=== PATIENT | male | born 1955 ===

== ENCOUNTER 2020-08-30 16:15 | Inpatient (IN) | payer MEDICARE ==
[~2020-08-30] VITALS: Ht 190.5 cm; Wt 127.0 kg
[2020-08-30] MEDS ORDERED: ACETAMINOPHEN 325 MG TABLET PO PRN (17:00)
[2020-08-30] MEDS ORDERED: MAGNESIUM HYDROXIDE 2,400 MG/30 ML ORAL.SUSP. PO PRN (17:00)
[2020-08-30] MEDS ORDERED: MAG HYDROX/AL HYDROX/SIMETH 30 ML ORAL.SUSP PO PRN (17:00)
[2020-08-30] MEDS ORDERED: METHYL SALICYLATE/MENTHOL TOPICAL OINTMENT 57GM TUBE. TP PRN (17:00)
[2020-08-30] MEDS ORDERED: COLC0.6T34 PO (17:12)
[2020-08-30] MEDS ORDERED: METO-239 PO (17:12)
[2020-08-30] MEDS ORDERED: VITB PO (17:12)
[2020-08-30] MEDS ORDERED: FLEC100T PO (17:12)
[2020-08-30] MEDS ORDERED: QUET50TA5 PO (17:12)
[2020-08-30] MEDS ORDERED: LEVO25TA4 PO (17:12)
[2020-08-30] MEDS ORDERED: CRESTOR10 MG PO (17:12)
[2020-08-30] MEDS ORDERED: VITC PO (17:12)
[2020-08-30] MEDS ORDERED: VENL37.5 PO (17:12)
[2020-08-30] MEDS ORDERED: [UNRECOGNIZED DRUG - OTHER] PO (17:12)
[2020-08-30] MEDS ORDERED: VENL150C PO (17:12)
[2020-08-30] MEDS ORDERED: ALLO300T PO (17:12)
[2020-08-30] MEDS ORDERED: APIX5TAB3 PO (17:12)
[2020-08-30] MEDS ORDERED: LISI40TA6 PO (17:12)
[2020-08-30] MEDS ORDERED: QUET25TA5 PO (17:12)
[2020-08-30 18:23] VITALS: BP 11/75
[2020-08-30 18:56] LABS: BASO # 0.1 x10^3/uL (0.0-0.2); BASO % 1 % (0-3); EOS # 0.4 x10^3/uL (0.0-0.7); EOS % 5 % (0-3); HEMATOCRIT 46.7 % (39.0-53.0); HEMOGLOBIN 15.6 g/dL (13.0-17.5); LYMPH # 2.4 x10^3/uL (1.0-4.8); LYMPH % 28 % (24-48); MEAN CORPUSCULAR HEMOGLOBIN 32 pg (25-35); MEAN CORPUSCULAR HGB CONC 33 g/dL (31-37); MEAN CORPUSCULAR VOLUME 97 fL (79-100); MONO # 0.7 x10^3/uL (0.0-1.1); MONO % 8 % (0-9); NEUT % 59 % (31-73); PLATELET COUNT 236 x10^3/uL (140-400); RED BLOOD COUNT 4.81 x10^6/uL (4.30-5.70); RED CELL DISTRIBUTION WIDTH 17.3 % (11.5-14.5); WHITE BLOOD COUNT 8.6 x10^3/uL (4.0-11.0)
[2020-08-30 19:24] LABS: ALBUMIN 3.9 g/dL (3.4-5.0); ALBUMIN/GLOBULIN RATIO 0.8 (1.0-1.7); CALCIUM 9.5 mg/dL (8.5-10.1); CREATININE 1.5 mg/dL (0.7-1.3); GFR 46.7; MAGNESIUM 2.1 mg/dL (1.8-2.4); POTASSIUM 4.9 mmol/L (3.5-5.1); TOTAL BILIRUBIN 0.7 mg/dL (0.2-1.0); TOTAL PROTEIN 8.6 g/dL (6.4-8.2)
[2020-08-30] MEDS: VENLAFAXINE 75 MG TABLET. PO SCH (21:00)
[2020-08-30] MEDS ORDERED: VENLAFAXINE XR 37.5 MG CAP.ER.24H. PO SCH (21:00)
[2020-08-30] MEDS: FLECAINIDE 50 MG TABLET. PO SCH (21:00)
[2020-08-30] MEDS: QUEtiapine 50 MG TABLET. PO SCH (21:20)
[2020-08-30] MEDS: APIXABAN 5 MG TABLET. PO SCH (21:20)
[2020-08-30] MEDS: METOPROLOL SUCC 24HR ER 25 MG TAB.ER.24H. PO SCH (21:21)
[2020-08-30] MEDS: ATORVASTATIN CALCIUM 20 MG TABLET PO SCH (21:22)
[2020-08-31] MEDS: LEVOTHYROXINE 25 MCG TABLET. PO SCH (05:22)
[2020-08-31 05:45] VITALS: BP 150/90
[2020-08-31] MEDS: APIXABAN 5 MG TABLET. PO SCH ×2 (08:17→20:23)
[2020-08-31] MEDS: COLCHICINE 0.6 MG TABLET. PO SCH (08:17)
[2020-08-31] MEDS: VITAMIN B COMPLEX CAPSULE. PO SCH (08:18)
[2020-08-31] MEDS: ALLOPURINOL 300 MG TABLET. PO SCH (08:18)
[2020-08-31] MEDS: QUEtiapine 25 MG TABLET. PO SCH (08:18)
[2020-08-31] MEDS: LISINOPRIL 20 MG TABLET PO SCH (08:18)
[2020-08-31] MEDS: VENLAFAXINE 75 MG TABLET. PO SCH ×3 (08:19→20:23)
[2020-08-31] MEDS: FLECAINIDE 50 MG TABLET. PO SCH ×2 (09:00→20:24)
[2020-08-31 09:02] LABS: BILIRUBIN,URINE NEG (NEG); CLARITY,URINE CLEAR; COLOR,URINE YELLOW; GLUCOSE,URINE NEG (NEG); NITRITE,URINE NEG (NEG); UROBILINOGEN,URINE 0.2 mg/dL (0.2 mg/dL)
[2020-08-31 09:04] LABS: BACTERIA,URINE 0 /HPF (0-FEW); RBC,URINE 0 /HPF (0-2); SQUAMOUS EPITHELIAL CELL,UR OCC /LPF
[2020-08-31 12:15] LABS: THYROXINE 6.2 ug/dL (4.5-12.0)
[2020-08-31 14:51] LABS: THYROID STIM HORMONE (TSH) 7.964 uIU/mL (0.358-3.740)
[2020-08-31 16:53] VITALS: BP 110/68
[2020-08-31] MEDS: QUEtiapine 50 MG TABLET. PO SCH (20:22)
[2020-08-31] MEDS: ATORVASTATIN CALCIUM 20 MG TABLET PO SCH (20:23)
[2020-08-31] MEDS: METOPROLOL SUCC 24HR ER 25 MG TAB.ER.24H. PO SCH (20:24)
[2020-09-01 00:32] LABS: HEMOGLOBIN A1C 7.4 % (4.8-5.6)
[2020-09-01] MEDS ORDERED: diphenhydrAMINE HCL 25 MG CAPSULE PO PRN (00:45)
--- NOTE | 2020-09-01 02:27 | PSYEV ---
DATE OF SERVICE: 08/24/2020 REASON FOR ADMISSION: This 65-year-old male was admitted from [facility] where he was evaluated for altered mental status. The patient apparently was prescribed Seroquel 2 days ago that helped him with his sleep. CHIEF COMPLAINT: "I have been having problems most of my life. I had multiple concussions playing football, also had problems with mood swings, also seasonal affective disorder and had difficulty coping with the mood changes. He also admits to drinking heavily up to a fifth of whiskey daily and quit 14 years ago, relapsed 3 years ago and has been clean for 30 days. The patient denies of having had any treatment in the past. HISTORY OF PRESENT ILLNESS: The patient has a long history of mood swings including depression, manic behaviors, 1 attempted suicide by overdose in 1998. At that time, he saw Dr. Israel and continued to see him on an outpatient basis for a period of time. He has been taking Effexor since then, total of 225 mg daily. The patient was also started on Abilify a month ago, apparently did not have enough supply, stopped taking it. ALCOHOL, DRUG ABUSE: The patient's urine drug screen at [facility] came positive for THC. The patient admits he has used drugs off and on, mostly cannabis, but not on a regular basis. He denies of having any addiction to cannabis. He admits he has problems with alcohol. He admits he is an alcoholic. Started drinking at the age of 16 and has become really a problem since 1996 after separation from his drinking at least a pint of whiskey. The patient admits to mild withdrawal symptoms in the past, shakes, nausea, but never had any DTs, no major falls. PAST PSYCHIATRIC HISTORY: The patient apparently was hospitalized in 1998 at [facility] following overdose of pills, stayed there for 5 days, then followed with a psychiatrist for a period of time. The patient also getting prescriptions for his antidepressants from his primary care doctor. FAMILY HISTORY: The patient admits his father had a lot of problems with mood swings. He would leave home, not come back and was very impulsive. He thinks probably he had bipolar disorder. The patient also admits his mother also had problems with severe depression, suicidal thoughts, but never attempted suicide. He also had mood swings and she in 1990. PSYCHOSOCIAL HISTORY: The patient states he had problems in school. He was ____ low self-esteem. The patient states he did fairly well. 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 The patient was twice, first marriage, 2 children. Second marriage, they were for 33 years and still . The patient admits he also experienced multiple trauma as part of his work. Still having some flashbacks and memories. MENTAL STATUS EXAMINATION: The patient appeared to be of his stated age, moderately obese, and able to make eye contact. The patient also showed increased psychomotor activity. Speech was clear, hyperverbal, but no speech impediment. Affect and mood showed he admits to having repeat fluctuating symptoms, sometimes he feels hyper restless, racing thoughts, but no evidence of any visual or auditory hallucinations and also periods he gets very depressed, sometimes deep depression. The patient has had suicidal thoughts in the past and only attempted suicide once. The patient openly admits he is an alcoholic and he likes to drink. The patient's affect and mood showed somewhat hyper, restless and also periods of depression. The patient also admits his mood varies several times during the daytime. He is having difficulty functioning sometimes. He admits to being impulsive, sometimes anger issues, racing thoughts, getting into arguments with people. He also admits to spending spree, impulse control problems, and low frustration tolerance. The patient denies of any psychotic symptoms. He is oriented to time, place, and person. His memory is intact for both past and present. The patient's judgment fair, insight Limited. STRENGTHS: Fairly in good health, retired, and has a fairly good support system. WEAKNESSES: The patient apparently relapsed drinking at least a fifth of whiskey daily and claims he quit 30 days ago, did not go through any major withdrawal symptoms. The patient has also problems with mood swings, racing thoughts, and high level of anxiety. DIAGNOSTIC IMPRESSION: AXIS I: 1. Bipolar disorder, mixed, moderate, without psychotic symptoms. 2. Alcohol dependence. 3. Generalized anxiety disorder. AXIS II: None. AXIS III: History of pulmonary embolism, also had emergency gallbladder surgery 3 months ago, also had surgery for carpal tunnel syndrome, hypertension, duodenal ulcer, gout, osteoarthritis, bilateral knee replacement. INITIAL TREATMENT PLAN: The patient will be involved in the treatment program, including individual therapy, group therapy, and activity therapy. The patient will be seen by the psychiatrist daily and also the patient will be seen by the primary care. The patient will continue on the medications he was taking prior to coming here that is Effexor 75 mg 3 times a day, Seroquel 25 mg in the morning and 50 mg at night. The patient will complete lab work. The patient apparently had a CT scan in the past and also he was probably assessed for Lewy body disease. LENGTH OF STAY: 10-14 days. DISCHARGE CRITERIA: The patient will complete the diagnostic evaluation and also look into differential diagnoses, bipolar versus early onset dementia, questionable Lewy body disease. LORETA/VANDA/MAINOR DR: Lidya TID: [id number]
[2020-09-01 06:12] VITALS: BP 147/78
[2020-09-01] MEDS: ALLOPURINOL 300 MG TABLET. PO SCH (08:47)
[2020-09-01] MEDS: COLCHICINE 0.6 MG TABLET. PO SCH (08:47)
[2020-09-01] MEDS: LISINOPRIL 20 MG TABLET PO SCH (08:48)
[2020-09-01] MEDS: APIXABAN 5 MG TABLET. PO SCH ×2 (08:49→20:23)
[2020-09-01] MEDS: QUEtiapine 25 MG TABLET. PO SCH (08:49)
[2020-09-01] MEDS: LEVOTHYROXINE 25 MCG TABLET. PO SCH (08:49)
[2020-09-01] MEDS: VENLAFAXINE 75 MG TABLET. PO SCH ×3 (08:49→20:23)
[2020-09-01] MEDS: VITAMIN B COMPLEX CAPSULE. PO SCH (08:49)
[2020-09-01] MEDS: FLECAINIDE 50 MG TABLET. PO SCH ×2 (08:50→20:24)
[2020-09-01 15:48] VITALS: BP 103/67
[2020-09-01] MEDS ORDERED: CHOLECALCIFEROL (VITAMIN D3) 50,000 UNIT CAPSULE PO SCH (16:00)
[2020-09-01] MEDS: ATORVASTATIN CALCIUM 20 MG TABLET PO SCH (20:23)
[2020-09-01] MEDS: QUEtiapine 50 MG TABLET. PO SCH (20:23)
[2020-09-01] MEDS: METOPROLOL SUCC 24HR ER 25 MG TAB.ER.24H. PO SCH (20:24)
[2020-09-01] MEDS ORDERED: ACET325T9 PO (23:26)
[2020-09-01] MEDS ORDERED: ATOR40TA59 PO (23:27)
[2020-09-01] MEDS ORDERED: CHOL500021 PO (23:28)
[2020-09-01] MEDS ORDERED: MAG30ORA2 PO (23:30)
[2020-09-01] MEDS ORDERED: MAGN24003 PO (23:31)
[2020-09-01] MEDS ORDERED: METH85CR TP (23:33)
[2020-09-01] MEDS ORDERED: VITA1CAP PO (23:35)
[2020-09-01] MEDS ORDERED: DIPH25CA58 PO (23:36)
--- NOTE | 2020-09-01 23:45 | CONS ---
DATE OF CONSULTATION: 09/01/2020 HISTORY OF PRESENT ILLNESS: The patient is a 65-year-old male patient who was admitted to [facility] on account of talking to self and nonexistent table, has altered mental status, hallucinating, confused, agitated, stuttering paranoid and delusional, all this on a background of possible dementia and possible Lewy body with psychotic symptoms. PAST MEDICAL HISTORY: Significant for hypertension, pulmonary embolism, atrial fibrillation, duodenal ulcer, gout, osteoarthritis. PAST SURGICAL HISTORY: Significant for bilateral total knee arthroplasty, has bilateral cataract extraction, bilateral carpal tunnel release, right ulnar nerve release and cholecystectomy. PAST PSYCHIATRIC HISTORY: Significant for major depressive disorder and anxiety disorder, possible Lewy body dementia. ALLERGIES: HE IS ALLERGIC TO BENZODIAZEPINE AND HYDROCHLOROTHIAZIDE. MEDICATIONS: He is currently on the following medication, he is on apixaban 5 mg twice a day, flecainide 100 mg twice a day, metoprolol succinate 25 mg at bedtime, lisinopril 40 mg once a day, venlafaxine 75 mg at bedtime. He is also on venlafaxine 150 mg daily, quetiapine fumarate 25 mg daily. He is on Seroquel 50 mg at bedtime, levothyroxine 25 mcg once a day, allopurinol 300 mg daily, colchicine 0.6 mg daily, Crestor 10 mg at bedtime, multivitamin 1 capsule once a day. FAMILY HISTORY: Noncontributory. SOCIAL HISTORY: He is , has 3 sons. He does not smoke. He used to be a heavy alcohol drinker, he quit about 30 days ago and he is a retired travel freight and passenger agent. PHYSICAL EXAMINATION: GENERAL: When I examined him this afternoon, he looked well and was clearly in no apparent respiratory distress. There was no pallor, jaundice, cyanosis or thyromegaly. No jugular distention. No limb edema. VITAL SIGNS: His heart rate was 68, blood pressure 147/78, temperature was 96.8, respiratory rate was 18 and oxygen saturation was 98%. HEENT: Examination of the head, eyes, ears, nose, and throat: Normocephalic, atraumatic. NECK: Supple. HEART: Normal first and second heart sounds, no gallop, murmur. CHEST: Clear to auscultation and percussion or rhonchi. ABDOMEN: Distended, soft, nontender. NEUROLOGIC: He is awake, alert, responding appropriately. All cranial nerves intact. He moves extremities without difficulty, ambulates without assistance or assistive devices. LABORATORY DATA: Showed a white cell count of 8600, hemoglobin 16, hematocrit 47, MCV 97 and platelet count 236,000 with normal manual differential. His chemistry showed a serum sodium of 132, potassium 4.9, chloride 98, bicarbonate 21, anion gap of 13, BUN 33, creatinine 1.5. Estimated GFR was 46 mL per minute. His glucose 170, calcium was 9.5. Total magnesium was 2.1. Total bilirubin and alkaline phosphatase is normal. AST, ALT slightly elevated. His total protein was 8.6, albumin was 3.9. His serum iron, TIBC, and iron saturation are all consistent with replete iron stores. His D-dimer was high at 2.16. His hemoglobin was 7.4%, serum triglycerides was 192. Total cholesterol 166, LDL was 94, VLDL was 38. HDL cholesterol of 34 and the ratio was 4. His vitamin B12 was 696 picograms. 25-hydroxy vitamin D was low at 13.8. TSH was slightly high at 7.964. However, total T4 and total T3 are both well within normal range. His urinalysis essentially unremarkable and his treponema pallidum antibodies nonreactive, so all in all the patient seems to be medically stable. ASSESSMENT AND PLAN: He has multiple medical problems including hypertension, which seems to be reasonably controlled. He is on atrial fibrillation, rate controlled, well anticoagulated. He has hypothyroidism, gout, for which he is on allopurinol and colchicine. Hyperlipidemia. His blood sugar seems to be high as well as hemoglobin A1c. Apparently this part was not addressed. He has also hypovitaminosis D. PLAN: My plan is to continue with current medication. He has compensated hypothyroidism as his TSH was slightly high, but T3 and T4 are normal. That obviously needs to be monitored closely. Thank you, Dr. Menendez, for allowing me to participate in the care of this patient. MACKENZIE NICKERSON: Radha TID: [id number]
--- NOTE | 2020-09-01 23:59 | PN ---
DATE: 09/01/2020 SUBJECTIVE: The patient was seen today, met with the staff, chart reviewed. The patient apparently has not presented with any major problems except still he has some pressure of speech, some racing thoughts and able to interact fairly well. No major behavior problems. director of physiotherapy services report that family called and made a statement that he is lucid now, met few days ago, he was a different person and they are ready to take him back. OBSERVATION: VITAL SIGNS: Temperature 96.8, blood pressure 147/78, pulse 68, respirations 18, O2 sat 98%. GENERAL: Slept about 2 hours last night. CURRENT MEDICATIONS: The patient's medications reviewed not having any side effects. LABORATORY DATA: The patient's lab reviewed. ASSESSMENT: Bipolar disorder, manic. PLAN: The patient is planned for discharge to go home tomorrow. Family is supportive of this plan. The patient's son will pick him up in the morning. The patient will continue other medications. Continue with the outpatient treatment. SANGEETA DR: Lidya TID: [id number]
[2020-09-02] MEDS: LEVOTHYROXINE 25 MCG TABLET. PO SCH (06:00)
[2020-09-02 06:16] VITALS: BP 147/75
[2020-09-02] MEDS: APIXABAN 5 MG TABLET. PO SCH (08:18)
[2020-09-02] MEDS: VITAMIN B COMPLEX CAPSULE. PO SCH (08:18)
[2020-09-02] MEDS: COLCHICINE 0.6 MG TABLET. PO SCH (08:19)
[2020-09-02] MEDS: ALLOPURINOL 300 MG TABLET. PO SCH (08:19)
[2020-09-02 08:20] VITALS: BP 147/75
[2020-09-02] MEDS: LISINOPRIL 20 MG TABLET PO SCH (08:20)
[2020-09-02] MEDS: VENLAFAXINE 75 MG TABLET. PO SCH (08:20)
[2020-09-02] MEDS: FLECAINIDE 50 MG TABLET. PO SCH (08:20)
[2020-09-02] MEDS: QUEtiapine 25 MG TABLET. PO SCH (08:20)
--- NOTE | 2020-09-02 19:57 | DS ---
DATE OF DISCHARGE: 09/02/2020 FINAL DIAGNOSIS: AXIS I: 1. Bipolar disorder, mixed, moderate, without psychotic symptoms. 2. Alcohol dependence. 3. Generalized anxiety disorder. AXIS II: None. AXIS III: History of pulmonary embolism, hypertension, duodenal ulcer, gout, osteoarthritis. REASON FOR ADMISSION: This 65-year-old male was admitted from [facility] where he was evaluated for altered mental status. The patient apparently was prescribed Seroquel 2 days ago that helped with his sleep. CHIEF COMPLAINT: "I have been having problems, most of my life. I had multiple concussions playing football, had problems with mood swings, although seasonal affective disorder." The patient also admitted to drinking whiskey almost a fifth daily for several years and quit about 14 years ago and relapsed 3 years ago and had not had anything to drink for the past month. HISTORY OF PRESENT ILLNESS: He has a long history of mood swings including depression, manic behaviors, 1 attempted suicide by overdose in 1998. The patient has seen a psychiatrist in the past and has been taking Effexor since his last hospitalization. The patient was started on Abilify a month ago, but he did start on it. HOSPITAL COURSE: The patient had a physical exam, routine lab work including CBC, chem profile, urinalysis. The patient's labs were within normal range except for hemoglobin A1c was 7.4. The patient's triglycerides 192, HDL 34, LDL 94. TSH was 7.9. The patient's urinalysis was within normal limits. The patient was involved in the program including individual therapy, group therapy and activity therapy. The patient initially had some problems with ____ some racing thoughts, but he was in control most of the time. The patient had difficulty controlling his thinking processes. The patient did not present with any major behavior problems. The patient was continued on his medications, Vitamin D 50,000 units weekly, lisinopril 40 mg daily, colchicine 0.6 mg daily, B complex one daily, Seroquel 25 mg daily, allopurinol 300 mg daily, levothyroxine 25 mg daily, Effexor 75 mg t.i.d., Lipitor 40 mg at night, Seroquel 50 mg at night. He was also on metoprolol 25 mg at night, Eliquis 5 mg twice a day. The patient did fairly well during his stay. The family decided to take him home and the patient during his stay did not present with any overt psychotic symptoms. Denied of any suicidal or homicidal thoughts. AFTERCARE PLANS: Patient was discharged to his home. The patient will continue to follow up with his primary care doctor and a psychiatrist and continue with the medication. SIMON DR: Lidya TID: [id number]
== END 2020-09-02 09:50 | disposition home or self-care (01) | DRG 885 ==
LOC: GEROPSY 16:15
PROVIDERS: ADMIT Psychiatry & Neurology Psychiatry; ATTEND Psychiatry & Neurology Psychiatry
DX: F31.62 Bipolar disorder, current episode mixed, moderate (principal); E03.9 Hypothyroidism, unspecified; E55.9 Vitamin D deficiency, unspecified; E66.9 Obesity, unspecified; E78.5 Hyperlipidemia, unspecified; F10.20 Alcohol dependence, uncomplicated; F41.1 Generalized anxiety disorder; F80.81 Childhood onset fluency disorder; I10 Essential (primary) hypertension; I48.91 Unspecified atrial fibrillation; M10.9 Gout, unspecified; Z79.01 Long term (current) use of anticoagulants; Z79.899 Other long term (current) drug therapy; Z81.8 Family history of other mental and behavioral disorders; Z86.711 Personal history of pulmonary embolism; Z87.11 Personal history of peptic ulcer disease; Z91.5 Personal history of self-harm; Z96.653 Presence of artificial knee joint, bilateral; Z98.41 Cataract extraction status, right eye; Z98.42 Cataract extraction status, left eye; F39 Unspecified mood [affective] disorder; Z68.35 Body mass index [BMI] 35.0-35.9, adult; Z88.8 Allergy status to other drugs, medicaments and biological substances
CPT/HCPCS: 36415; 80053; 80061; 81001; 82306; 82607; 83036; 83540; 83550; 83735; 84436; 84443; 84480; 85025; 85379; 86592; Q0163; 97116; 97530